=== PATIENT | male | born 1945 | race Caucasian/White ===

== ENCOUNTER 2018-08-19 05:06 | Outpatient (CLI) | payer OTHER ==
[2018-08-19 15:22] LABS: Hemoglobin 15.3 g/dL (14.0-18.0); Mean Corpuscular HGB CONC 33.9 g/dL (32.0-36.0); Mean Corpuscular Hemoglobin 31.7 pg (27.0-31.0); Mean Corpuscular Volume 93.4 fL (78.0-98.0); Mean Platelet Volume 6.5 fL (7.4-10.4); Platelet Count 301 thou/uL (130-400); RBC Distribution Width 11.7 % (11.5-14.5); Red Blood Cell (RBC) Count 4.83 mill/uL (4.70-6.10); White Blood Cell (WBC) Count 9.9 thou/uL (4.8-10.8)
[2018-08-19 15:47] LABS: Anion Gap 15 mmol/L (10-20); BUN (Urea Nitrogen) 14 mg/dL (8.4-25.7); Calc. Creatinine Clearance 0 mL/min (70-130); Calcium 10.8 mg/dL (7.8-10.44); Carbon Dioxide 27 mmol/L (23-31); Chloride 102 mmol/L (98-107); Estimated GFR-MDRD 65; Glucose 112 mg/dL (83-110); Potassium 4.8 mmol/L (3.5-5.1); Sodium 139 mmol/L (136-145)
== END 2018-08-19 05:07 | disposition home or self-care (01) ==
LOC: LABBT 05:06
PROVIDERS: ATTEND Neurological Surgery
DX: Z01.818 Encounter for other preprocedural examination (principal); M48.062 Spinal stenosis, lumbar region with neurogenic claudication
CPT/HCPCS: 80048; 85027

== ENCOUNTER 2018-08-19 15:30 | Inpatient (IN) | payer OTHER ==
[2018-08-19 14:32] VITALS: BMI 22.2
[2018-08-20] MEDS ORDERED: Sodium Chloride 0.9% 0 ML ONE (07:23)
[2018-08-20] MEDS ORDERED: CEFAZOLIN 2 GM/50 ML BAG ONE (07:43)
[2018-08-20] MEDS ORDERED: Midazolam HCl 2 mg/2 ml Vial ONE (08:02)
[2018-08-20] MEDS ORDERED: Fentanyl 100 MCG/2 ML VIAL ONE ×4 (08:03→11:24)
[2018-08-20] MEDS ORDERED: Ondansetron HCl/PF 4 MG/2 ML Vial IVP PRN (09:42)
[2018-08-20] MEDS ORDERED: Promethazine HCl 25 MG/ML VIAL SLOW IVP PRN (09:42)
[2018-08-20] MEDS ORDERED: Promethazine HCl 25 MG/ML VIAL IM PRN ×2 (09:42→13:46)
--- NOTE | 2018-08-20 10:48 | OP ---
DATE OF PROCEDURE: 08/20/2018 HYDROLOGICAL TECHNICAL OFFICER: Luciano. PROCEDURE PERFORMED: L4 through S1 decompressive laminectomy, posterolateral arthrodesis, demineralized bone matrix, local morselized autograft, pedicle screw instrumentation, L4-S1. DESCRIPTION OF PROCEDURE: The patient was brought to the operating room and intubated. He was rolled in a prone position on gel-filled chest rolls. An incision was made exposing L4 through S1, and the level was confirmed by x-ray. We performed complete L5 and inferior L4 laminectomies and completely decompressed the L4-L5 and L5-S1 interspaces. Next, pedicle screws were placed at L4, L5, and S1 bilaterally using lateral fluoroscopic guidance and the position was confirmed by x-ray. The efra was secured between the screws connected by nuts, which were final tightened. The wound was then extensively irrigated and maximum hemostasis was secured. Combination of demineralized bone matrix and local morselized autograft was laid over the lamina and posterolateral surfaces for the purpose of arthrodesis. Vancomycin powder was applied and the wound was closed in anatomic layers. Job ID: [id number]
[2018-08-20] MEDS ORDERED: HYDROmorphone 2 MG/ML VIAL ONE (12:03)
[2018-08-20] MEDS ORDERED: diphenhydrAMINE 50 MG/ML VIAL IVP PRN (13:46)
[2018-08-20] MEDS ORDERED: Milk Of Magnesia 30 ML UDCUP PO PRN (13:46)
[2018-08-20] MEDS ORDERED: Promethazine HCl 12.5 MG SUPP PR PRN (13:46)
[2018-08-20] MEDS ORDERED: HYDROcodone/Acetaminophen 10/325 mg Tablet PO PRN (13:46)
[2018-08-20] MEDS ORDERED: Morphine 4 MG/ML VIAL SLOW IVP PRN (13:46)
[2018-08-20] MEDS ORDERED: traMADol HCl 50 MG TAB PO PRN ×2 (13:46)
[2018-08-20] MEDS ORDERED: tiZANidine HCl 4 MG TAB PO PRN (13:46)
[2018-08-20] MEDS ORDERED: Ondansetron PF 4 MG/2 ML Vial IM PRN (13:46)
[2018-08-20] MEDS ORDERED: diphenhydrAMINE 25 MG CAP PO PRN (13:46)
[2018-08-20] MEDS ORDERED: Bisacodyl 10 MG SUPP PR PRN (13:46)
[2018-08-20] MEDS ORDERED: Mag-Al 1200 mg/1200 mg/30 ML UDCUP PO PRN (13:46)
[2018-08-20] MEDS ORDERED: Promethazine 25 MG TAB PO PRN (13:46)
[2018-08-20] MEDS ORDERED: Morphine 4 MG/ML VIAL IV PRN (13:47)
[2018-08-20] MEDS: HYDROcodone/Acetaminophen 10/325 mg Tablet PO PRN ×2 (14:07→21:42)
--- NOTE | 2018-08-20 15:13 | PDOC.PN ---
- Subjective Encounter Start Date: 08/20/18 Encounter Start Time: 15:00 Subjective: no c/o chest pain, sob or palpitations -: is eating his lunch now - Objective MAR Reviewed: Yes Vital Signs & Weight: Weight Weight 155 lb Phys Exam - Physical Examination HEENT: PERRLA, moist MMs Neck: no JVD, supple Respiratory: no wheezing, no rales Cardiovascular: RRR, no significant murmur Gastrointestinal: soft, non-tender, positive bowel sounds Musculoskeletal: no edema, pulses present Neurological: non-focal, moves all 4 limbs Psychiatric: normal affect, A&O x 3 Dx/Plan (1) HTN (hypertension) Code(s): I10 - ESSENTIAL (PRIMARY) HYPERTENSION Status: Chronic Qualifiers: Hypertension type: essential hypertension Qualified Code(s): I10 - Essential (primary) hypertension (2) S/P laminectomy Code(s): Z98.890 - OTHER SPECIFIED POSTPROCEDURAL STATES Status: Acute Comment: L4-S1, 08/20/2018 (3) Dyslipidemia Code(s): E78.5 - HYPERLIPIDEMIA, UNSPECIFIED Status: Chronic (4) BPH (benign prostatic hyperplasia) Code(s): N40.0 - BENIGN PROSTATIC HYPERPLASIA WITHOUT LOWER URINRY TRACT SYMP Status: Chronic Qualifiers: Lower urinary tract symptom presence: symptoms absent Qualified Code(s): N40.0 - Benign prostatic hyperplasia without lower urinary tract symptoms (5) PVD (peripheral vascular disease) Code(s): I73.9 - PERIPHERAL VASCULAR DISEASE, UNSPECIFIED Status: Chronic Comment: fem-fem bypass, initial surgery in 2004 then redo in 2005 (6) COPD (chronic obstructive pulmonary disease) Status: Chronic Qualifiers: COPD type: chronic bronchitis Chronic bronchitis type: unspecified Qualified Code(s): J42 - Unspecified chronic bronchitis - Plan pt is post op laminectomy, doing well -: continue coreg, cozaar, norvasc, zocor -: flomax, sertraline, inhalers as before -: last stress test in 2002 was normal -: incentive spirometry, PT to mobilize per nsx advice * . Review of Systems - Medications/Allergies Allergies/Adverse Reactions: Allergies Allergy/AdvReac Type Severity Reaction Status Date / Time bacitracin Allergy Verified 08/19/18 14:34 [From Neosporin ([id number])] hydrochlorothiazide Allergy Verified 08/19/18 14:34 lisinopril Allergy Verified 08/19/18 14:34 morphine Allergy Verified 08/19/18 14:34 neomycin Allergy Verified 08/19/18 14:34 [From Neosporin ([id number])] nicotine Allergy Verified 08/19/18 14:34 polymyxin B Allergy Verified 08/19/18 14:34 [From Neosporin ([id number])] Medications: Current Medications Hydrocodone Bitart/Acetaminophen ([place] 10/325) 1 tab PO Q4H PRN PRN Reason: PAIN (1-3) Hydrocodone Bitart/Acetaminophen ([place] 10/325) 2 tab PO Q4H PRN PRN Reason: PAIN (4-6) Last Admin: 08/20/18 14:07 Dose: 2 tab Al Hydroxide/Mg Hydroxide (Maalox) 30 ml PO Q4H PRN PRN Reason: Heartburn or Indigestion Bisacodyl (Dulcolax) 10 mg NM Q12H PRN PRN Reason: Constipation Diphenhydramine HCl (Benadryl) 25 mg PO Q6H PRN PRN Reason: Itching Diphenhydramine HCl (Benadryl) 25 mg IVP Q6H PRN PRN Reason: Itching Cefazolin Sodium/Dextrose 2 gm (/ Device) 50 mls @ 100 mls/hr IVPB Q8H [facility] Stop: 08/21/18 00:29 Sodium Chloride (Normal Saline 0.9%) 1,000 mls @ 75 mls/hr IV .[id number] DOTTIE Magnesium Hydroxide (Milk Of Magnesium) 30 ml PO Q12H PRN PRN Reason: Constipation Morphine Sulfate (Morphine) 2 mg IV Q1H PRN PRN Reason: MODERATE BREAKTHROUGH PAIN Morphine Sulfate (Morphine) 4 mg SLOW IVP Q1H PRN PRN Reason: SEVERE BREAKTHROUGH PAIN Ondansetron HCl (Zofran) 4 mg IM Q24H PRN PRN Reason: Nausea/Vomiting Promethazine HCl (Phenergan) 12.5 mg IM Q4H PRN PRN Reason: Nausea/Vomiting Promethazine HCl (Phenergan) 12.5 mg PO Q4H PRN PRN Reason: Nausea/Vomiting Promethazine HCl (Phenergan Suppository) 12.5 mg NM Q4H PRN PRN Reason: Nausea/Vomiting Sodium Chloride (Flush - Normal Saline) 10 ml IVF Q12HR DOTTIE Sodium Chloride (Flush - Normal Saline) 10 ml IVF PRN PRN PRN Reason: Saline Flush Tizanidine HCl (Zanaflex) 4 mg PO Q6H PRN PRN Reason: MUSCLE SPASM Tramadol HCl (Ultram) 50 mg PO Q6H PRN PRN Reason: PAIN (1-3) Tramadol HCl (Ultram) 100 mg PO Q6H PRN PRN Reason: PAIN (4-6)
[2018-08-20] MEDS ORDERED: Lidocaine 5% Patch TD PRN (15:20)
[2018-08-20] MEDS ORDERED: Artificial Tear Sol 15 ML BOT EA EYE PRN (15:21)
[2018-08-20] MEDS ORDERED: DICLOFENAC 1% GEL TOP PRN (15:24)
[2018-08-20] MEDS ORDERED: PROVENTIL INHALER 6.7 G (200 INHALATIONS) INH PRN (15:27)
[2018-08-20] MEDS ORDERED: Albuterol Sulfate 2.5 mg/3 ml Neb NEB PRN (15:27)
[2018-08-20] MEDS ORDERED: Lidocaine Patch Removal 1 EACH TOP SCH (15:30)
[2018-08-20] MEDS: CEFAZOLIN 2 GM/50 ML-DEXTROSE 2 GM in Premix Bag 1 BAG IVPB SCH ×2 (17:12→23:58)
[2018-08-20] MEDS ORDERED: BUDESONIDE INH SCH (18:30)
[2018-08-20] MEDS: Ipratropium Bromide 2.5 ml Neb NEB SCH (19:19)
[2018-08-20] MEDS ORDERED: Tamsulosin HCl 0.4 MG CAP PO SCH (19:30)
[2018-08-20] MEDS: Sodium Chloride 0.9% 1,000 ML IV SCH ×2 (19:51→22:25)
[2018-08-20] MEDS ORDERED: PROPOFOL 200 MG/20 ML VIAL ONE (19:55)
[2018-08-20] MEDS ORDERED: Glycopyrrolate 0.2 MG/ML 5 ML SYRINGE ONE (19:55)
[2018-08-20] MEDS ORDERED: Dexamethasone 20 MG/5 ML VIAL ONE (19:55)
[2018-08-20] MEDS ORDERED: Ondansetron PF 4 MG/2 ML Vial ONE (19:55)
[2018-08-20] MEDS ORDERED: Nortriptyline HCl 25 MG CAP PO SCH (21:00)
[2018-08-20] MEDS ORDERED: Atorvastatin Calcium 10 MG TAB PO SCH (21:00)
[2018-08-20] MEDS ORDERED: Famotidine 20 MG TAB PO SCH (21:00)
[2018-08-20] MEDS: Carvedilol 25 MG TAB PO SCH (21:37)
[2018-08-21] MEDS: Ipratropium Bromide 2.5 ml Neb NEB SCH ×2 (03:47→07:02)
[2018-08-21 07:54] VITALS: BP 174/71; TEMP 99.7
[2018-08-21] MEDS ORDERED: Tamsulosin HCl 0.4 MG CAP PO SCH (09:00)
[2018-08-21] MEDS ORDERED: Amlodipine 10 MG TAB PO SCH (09:00)
[2018-08-21] MEDS ORDERED: Loratadine 10 MG TAB PO SCH (09:00)
[2018-08-21] MEDS ORDERED: Calcium Carbonate + Vit D 1 TAB PO SCH (09:00)
[2018-08-21] MEDS ORDERED: Furosemide 20 MG TAB PO SCH (09:00)
[2018-08-21] MEDS ORDERED: Folic Acid 1 MG TAB PO SCH (09:00)
[2018-08-21] MEDS ORDERED: Losartan 25 MG TAB PO SCH (09:00)
[2018-08-21] MEDS ORDERED: Multivitamin W/ Minerals 1 TAB PO SCH (09:00)
[2018-08-21] MEDS ORDERED: DULoxetine 60 MG CAP PO SCH (09:00)
[2018-08-21] MEDS ORDERED: Fluticasone Propionate Nasal Spray 16 gm Bottle NASAL SCH (09:00)
[2018-08-21] MEDS: Carvedilol 25 MG TAB PO SCH (09:08)
--- NOTE | 2018-08-22 04:05 | DIS ---
DATE OF ADMISSION: 08/20/2018 DATE OF DISCHARGE: 08/21/2018 HOSPITAL COURSE: The patient is a 73-year-old male, recently seen in our office for progressive low back and bilateral leg pain. The patient underwent L4-S1 decompression and fusion. Following that, he was transitioned to the [facility] where his pain was well controlled with p.o. medications, he was tolerating a regular diet. The patient initially did have some urinary retention and was treated with p.o. dose of Flomax as well as I and O straight cath x1. Following this, the patient had improvement and is now voiding on his own without any difficulty. He was up ambulating as well throughout the department without difficulty. I am visiting the patient this morning at the bedside. He is awake, alert, in no acute distress. His incision is dry. He has free active range of motion of all extremities. No focal motor weakness. We will plan to dismiss the patient to home. I discussed home care precautions and follow up with the patient in 2 weeks. He has been provided with scripts for hydrocodone, Zanaflex, and Keflex, and instructions for home. Job ID: [id number]
== END 2018-08-21 10:00 | disposition home or self-care (01) | DRG 460 ==
LOC: SURG A 08-20 07:10
PROVIDERS: ADMIT Neurological Surgery; ATTEND Neurological Surgery
PROC: 0SG0071 Fusion of Lumbar Vertebral Joint with Autologous Tissue Substitute, Posterior Approach, Posterior Column, Open Approach (ICD-10-PCS; principal; 2018-08-20)
PROC: 0SG3071 Fusion of Lumbosacral Joint with Autologous Tissue Substitute, Posterior Approach, Posterior Column, Open Approach (ICD-10-PCS; 2018-08-20)
DX: M47.816 Spondylosis without myelopathy or radiculopathy, lumbar region (principal); M48.061 Spinal stenosis, lumbar region without neurogenic claudication; M51.36 Other intervertebral disc degeneration, lumbar region; I10 Essential (primary) hypertension; E78.5 Hyperlipidemia, unspecified; I73.9 Peripheral vascular disease, unspecified; J44.9 Chronic obstructive pulmonary disease, unspecified; N40.0 Benign prostatic hyperplasia without lower urinary tract symptoms; Z88.1 Allergy status to other antibiotic agents; Z88.5 Allergy status to narcotic agent; Z88.8 Allergy status to other drugs, medicaments and biological substances
CPT/HCPCS: 76001; 80048; 85027; 93005; 93010; 94640; C1713; C1768; G8978-GP-CI; G8979-GP-CI; G8980-GP-CI; J1100; J1170; J2250; J2405; J2704; J3010; J3370; J3490

== ENCOUNTER 2018-09-02 12:39 | Outpatient (CLI) | payer OTHER ==
--- NOTE | 2018-09-02 14:28 | RAD ---
LUMBAR SPINE RADIOGRAPH: INDICATION: Followup surgery. COMPARISON: None. FINDINGS: There is posterolateral instrumentation spanning L4 through S1. There are laminectomy changes at L4 and L5. There are interconnecting rods. There is extensive vascular calcification involving the abd ominopelvic vasculature. There is slight levoscoliosis at L3-4. There is multilevel degenerative di sk disease. Spinal alignment on the lateral projection appears within normal limits. IMPRESSION: Posterolateral spinal fusion spanning L4 through S1. POS: ABIMAEL
== END 2018-09-02 12:40 | disposition home or self-care (01) ==
LOC: TBSIIMAG 12:39
PROVIDERS: ATTEND Neurological Surgery
DX: M54.9 Dorsalgia, unspecified (principal); Z98.1 Arthrodesis status
CPT/HCPCS: 72100